=== PATIENT | female | born 1930 | race Caucasian/White ===

== ENCOUNTER 2017-07-31 13:50 | Day surgery (SDC) | payer MEDICARE, OTHER ==
[~2017-07-31] VITALS: Ht 154.9 cm; Wt 48.9 kg
[2017-07-31 14:25] VITALS: BP 155/88; PULSE 88; TEMP 97.7
[2017-07-31] MEDS ORDERED: HCTZ12.5TAB PO (14:34)
[2017-07-31] MEDS ORDERED: ASPIRIN E.C. 8181 MG PO (14:34)
[2017-07-31] MEDS ORDERED: DUO-KAPS1 CAP PO (14:35)
[2017-07-31] MEDS ORDERED: VITAMIN B12 1541 TAB PO (14:36)
[2017-07-31] MEDS ORDERED: LIPITOR 40MG TA40 MG PO (14:37)
[2017-07-31] MEDS ORDERED: TENORMIN100 MG PO (14:37)
[2017-07-31] MEDS ORDERED: OS-CAL 500 + D1 TAB PO (14:37)
[2017-07-31] MEDS ORDERED: NATURAL E400 IU PO (14:38)
[2017-07-31] MEDS ORDERED: BIOTIN2500 MCG PO (14:39)
[2017-07-31] MEDS ORDERED: REQUIP 1MG T1 MG/TAB PO (14:39)
[2017-07-31] MEDS ORDERED: TYLENOL PM EXTR1 TA1 PO (14:40)
[2017-07-31 15:40] VITALS: BP 151/75; PULSE 78; TEMP 97.7
[2017-07-31 15:55] VITALS: BP 139/70
[2017-07-31 17:59] VITALS: BP 113/68; PULSE 70
== END 2017-07-31 16:33 | disposition home or self-care (01) ==
LOC: SDCO 13:50
DX: K57.30 Diverticulosis of large intestine without perforation or abscess without bleeding (principal); K64.2 Third degree hemorrhoids; R15.9 Full incontinence of feces; E78.00 Pure hypercholesterolemia, unspecified; K62.89 Other specified diseases of anus and rectum; Z87.891 Personal history of nicotine dependence
CPT/HCPCS: OP; J2250; J3010; J7030

== ENCOUNTER 2021-01-07 16:19 | Emergency (ER) | payer MEDICARE, OTHER ==
[~2021-01-07] VITALS: Ht 157.5 cm; Wt 68.2 kg
[~2021-01-07 16:19] MED LIST: AMOXICILLIN 8751 TAB PO; ASPIRIN E.C. 8181 MG PO; BIOTIN2500 MCG PO; DUO-KAPS1 CAP PO; HCTZ12.5TAB PO; LIPITOR 40MG TA40 MG PO; MUCINEX 60600 MG/TA1 PO; NATURAL E400 IU PO; OS-CAL 500 + D1 TAB PO; REQUIP 1MG T1 MG/TAB PO; TENORMIN100 MG PO; TYLENOL PM EXTR1 TA1 PO; VITAMIN B12 1541 TAB PO
[2021-01-07 16:23] VITALS: TEMP 97.9
[2021-01-07 18:49] VITALS: BP 144/89; PULSE 86
== END 2021-01-07 18:49 | disposition home or self-care (01) ==
LOC: COL.ER 16:19
DX: S52.021A Displaced fracture of olecranon process without intraarticular extension of right ulna, initial encounter for closed fracture (principal); M25.561 Pain in right knee; J44.9 Chronic obstructive pulmonary disease, unspecified; F03.90 Unspecified dementia, unspecified severity, without behavioral disturbance, psychotic disturbance, mood disturbance, and anxiety; Z88.8 Allergy status to other drugs, medicaments and biological substances; Z79.899 Other long term (current) drug therapy; W01.198A Fall on same level from slipping, tripping and stumbling with subsequent striking against other object, initial encounter; Y92.89 Other specified places as the place of occurrence of the external cause

== ENCOUNTER → 2021-01-26 | Outpatient (REF) ==
[~2021-01-26] MED LIST changes: +ANTIVERT 12.512.5 MG PO; +ARICEPT 5MG PO; +ARICEPT10 MG PO; +ATROVENT I0.2 MG/1 M IH; +B-121000 MCG PO; +BIOTENE DRY M1000 ML PO; +CARDIZEM CD 12120 MG PO; +COLACE 100100 MG/CAP PO; +DEBROX OT; +DULCOLAX S10 MG/SUPP RC; +GOOD SENSE400 MG/5 M PO; +LIDODERM 5% PATC1 EA TP; +MOBIC 7.5MG7.5 MG PO; +MYLANTA 150 ML150 M1 PO; +OSCAL 500 TAB500 MG PO; +PROAIR HFA0.09 MG/AC; +SPIRIVA RE2.5 MCG/Ac IH; +TYLENOL 325MG325 MG PO; +TYLENOL SU650 MG/SUP RC
[2021-01-26 09:27] LABS: COLLECTION METHOD CLEAN CATCH
[2021-01-26 09:31] LABS: BASO % 0.8 % (0.0-2.0); EOS # 0.1 (0.0-0.7); EOS % 2.3 % (0-4.0); GRAN # 3.9 (1.4-6.5); HEMATOCRIT 40.7 % (37.0-47.0); HEMOGLOBIN 12.7 g/dl (12.5-16.0); LYMPH # 0.8 (1.2-3.4); LYMPH % 15.8 % (20.0-51.0); MEAN CELL VOLUME 100 fl (80.0-100.0); MEAN CORPUSCULAR HEMOGLOBIN 31 pg (27.0-31.0); MEAN CORPUSCULAR HGB CONC 31 g/dl (33.0-37.0); MEAN PLATELET VOLUME 9.6 fl (7.4-10.4); MONO # 0.3 (0.1-0.6); MONO % 5.5 % (1.7-9.3); PLATELET COUNT 347 K/mm3 (130-400); RED BLOOD COUNT 4.09 M/mm3 (4.10-5.30); REDCELL DISTRIBUTION WIDTH-CV 12.6 % (11.5-14.5)
[2021-01-26 09:33] LABS: PH 7 (5-8); SQUAMOUS EPITHELIAL 0-2 /hpf; URINE APPEARANCE Clear; URINE BACTERIA None Seen /hpf; URINE BILIRUBIN Negative (NEGATIVE); URINE BLOOD Negative (NEGATIVE); URINE COLOR Yellow; URINE GLUCOSE Negative (NEGATIVE); URINE KETONE Negative (NEGATIVE); URINE LEUKOCYTE ESTERASE Trace (NEGATIVE); URINE NITRATE Negative (NEGATIVE); URINE PROTEIN(semi-quant) Negative (NEGATIVE); URINE RBC None Seen /hpf; URINE UROBILINOGEN Negative (NEGATIVE)
[2021-01-26 09:37] LABS: INR 1.1 (0.8-3.0); PROTHROMBIN TIME 12.6 SECONDS (9.7-12.8)
[2021-01-26 09:48] LABS: ALBUMIN 3.6 gm/dL (3.5-5.0); BILIRUBIN,TOTAL 0.8 mg/dL (0.0-1.0); CALCIUM 9.3 mg/dL (8.4-10.2); CREATININE, serum 0.66 (0.52-1.25); POTASSIUM 4.4 mmol/L (3.4-5.0); TOTAL PROTEIN 6.4 gm/dL (6.4-8.2)
== END ==
LOC: ZCOL.LAB 09:24
PROVIDERS: Orthopaedic Surgery Sports Medicine
DX: Z01.89 Encounter for other specified special examinations (principal)

== ENCOUNTER 2021-01-31 05:19 | Day surgery (SDC) | payer MEDICARE, OTHER ==
[~2021-01-31] VITALS: Ht 152.4 cm; Wt 40.0 kg
[2021-01-31] VITALS (9 sets, daily range): BP systolic 115–145; BP diastolic 42–76; PULSE 59–81; TEMP 98
[~2021-01-31 05:19] MED LIST changes: -ANTIVERT 12.512.5 MG PO; -ARICEPT 5MG PO; -ARICEPT10 MG PO; -ATROVENT I0.2 MG/1 M IH; -B-121000 MCG PO; -BIOTENE DRY M1000 ML PO; -CARDIZEM CD 12120 MG PO; -COLACE 100100 MG/CAP PO; -DEBROX OT; -DULCOLAX S10 MG/SUPP RC; -GOOD SENSE400 MG/5 M PO; -LIDODERM 5% PATC1 EA TP; -MOBIC 7.5MG7.5 MG PO; -MYLANTA 150 ML150 M1 PO; -OSCAL 500 TAB500 MG PO; -PROAIR HFA0.09 MG/AC; -SPIRIVA RE2.5 MCG/Ac IH; -TYLENOL 325MG325 MG PO; -TYLENOL SU650 MG/SUP RC
--- NOTE | 2021-01-31 06:00 | NUR ---
Patient transfered via wheelchair to [facility]. Alert and oriented. Vital signs obtained. Consent signed. 20G IV started in left hand with one attempt, infusing without difficulty. Heart regular. Lung sounds diminished, but clear. Bowel sounds present. Mukesh herrera applied. Surgery to do hex scrub in OR after sedation due to patient discomfort. Bed rails up, call light in reach, non slip socks on. Will continue to monitor.
--- NOTE | 2021-01-31 06:45 | NUR ---
Called bernard[facility] for last time medications were taken. [phone] - left message [phone] - no answer [phone] - call dropped [phone] - Spoke with Gisele at [facility] for medication times taken.
[2021-01-31] MEDS ORDERED: ARICEPT10 MG PO (07:18)
[2021-01-31] MEDS ORDERED: ARICEPT 5MG PO (07:19)
[2021-01-31] MEDS ORDERED: TENORMIN100 MG PO (07:24)
[2021-01-31] MEDS ORDERED: OSCAL 500 TAB500 MG PO (07:25)
[2021-01-31] MEDS ORDERED: CARDIZEM CD 12120 MG PO (07:29)
[2021-01-31] MEDS ORDERED: B-121000 MCG PO (07:31)
[2021-01-31] MEDS ORDERED: COLACE 100100 MG/CAP PO (07:32)
[2021-01-31] MEDS ORDERED: ATROVENT I0.2 MG/1 M IH (07:37)
[2021-01-31] MEDS ORDERED: LIDODERM 5% PATC1 EA TP (07:41)
[2021-01-31] MEDS ORDERED: MOBIC 7.5MG7.5 MG PO (07:42)
[2021-01-31] MEDS ORDERED: REQUIP 1MG T1 MG/TAB PO ×2 (07:44→10:07)
[2021-01-31] MEDS ORDERED: SPIRIVA RE2.5 MCG/Ac IH (07:45)
[2021-01-31] MEDS ORDERED: TYLENOL SU650 MG/SUP RC (07:46)
[2021-01-31] MEDS ORDERED: BIOTENE DRY M1000 ML PO (07:47)
[2021-01-31] MEDS ORDERED: DULCOLAX S10 MG/SUPP RC (07:48)
[2021-01-31] MEDS ORDERED: DEBROX OT (07:50)
[2021-01-31] MEDS ORDERED: GOOD SENSE400 MG/5 M PO (08:09)
[2021-01-31] MEDS ORDERED: ANTIVERT 12.512.5 MG PO (08:12)
[2021-01-31] MEDS ORDERED: PROAIR HFA0.09 MG/AC (08:24)
[2021-01-31] MEDS ORDERED: TYLENOL 325MG325 MG PO (08:25)
--- NOTE | 2021-01-31 09:20 | NUR ---
PT TO ROOM 327 PER BED WITH REPORT FROM WAYNE COLES CRNA. PT IS CONFUSED, RESPONDS TO VERBAL. SON AT BEDSIDE. PT TO FLOOR @0840. RIGHT ARM WITH BULKY DRESSING AND SLING FOR ORIF OF RIGHT ELBOW. VSS.
[2021-01-31] MEDS ORDERED: MYLANTA 150 ML150 M1 PO (10:05)
--- NOTE | 2021-01-31 12:03 | NUR ---
PT UP TO BSC WITH ASSIST X2. PT INCONTINENT.
--- NOTE | 2021-01-31 12:22 | NUR ---
Plan to return [facility] for rehab unless she can go home with Home health. SW met with patient about care. Patient reports that she is at [facility] for rehab but resides in [place]. Patient indicated that she had a fall and that she has had home health through [facility] in the past. Patient shares that her PCP is Dr. Coronado and Dr. Damon. Patient indicated that she has and oxygenator at home and uses it PRN. Patient reports that she has a walker that she owns at home and uses it but reports that she does not understand what she is capably of since the fall. Patient indicated that her son Willy is her POA and Son Jose A. Willy is . Patient reports that her son Jose A is in [facility]. Patient shares that her care is supported and she is willing to do what she needs to rehab. Will follow for care.
--- NOTE | 2021-01-31 14:42 | NUR ---
Pt discharge information faxed to Brian at [phone].
--- NOTE | 2021-01-31 15:17 | NUR ---
CRITERIA MET AND PT DISCHARGED BACK TO [facility].
== END 2021-01-31 14:50 ==
LOC: SDCO 05:19 → SURG 08:30 → SDCO 08:30 → SURG 14:50
DX: S52.021A Displaced fracture of olecranon process without intraarticular extension of right ulna, initial encounter for closed fracture (principal); M81.0 Age-related osteoporosis without current pathological fracture; J44.9 Chronic obstructive pulmonary disease, unspecified; I10 Essential (primary) hypertension; E78.5 Hyperlipidemia, unspecified; G25.81 Restless legs syndrome; Z79.899 Other long term (current) drug therapy; Z85.858 Personal history of malignant neoplasm of other endocrine glands; Z79.891 Long term (current) use of opiate analgesic; Z83.3 Family history of diabetes mellitus
CPT/HCPCS: OP; C1713; J2250; J2704; J2795; J3010; J7120

== ENCOUNTER → 2021-02-05 | Outpatient (REF) ==
[~2021-02-05] MED LIST changes: +ANTIVERT 12.512.5 MG PO; +ARICEPT 5MG PO; +ARICEPT10 MG PO; +ATROVENT I0.2 MG/1 M IH; +B-121000 MCG PO; +BIOTENE DRY M1000 ML PO; +CARDIZEM CD 12120 MG PO; +COLACE 100100 MG/CAP PO; +DEBROX OT; +DULCOLAX S10 MG/SUPP RC; +GOOD SENSE400 MG/5 M PO; +LIDODERM 5% PATC1 EA TP; +MOBIC 7.5MG7.5 MG PO; +MYLANTA 150 ML150 M1 PO; +OSCAL 500 TAB500 MG PO; +PROAIR HFA0.09 MG/AC; +SPIRIVA RE2.5 MCG/Ac IH; +TYLENOL 325MG325 MG PO; +TYLENOL SU650 MG/SUP RC
[2021-02-11 14:11] LABS: URINE T PROTEIN, RANDOM (PEP) 9 mg/dL (())
== END ==
LOC: ZCOL.LAB 09:48
PROVIDERS: Psychiatry & Neurology Neurology
DX: R41.3 Other amnesia (principal); R29.6 Repeated falls; R44.3 Hallucinations, unspecified